=== PATIENT | male | born 1980 | race American Indian/Alaskan Native ===

== ENCOUNTER 2017-10-24 20:04 | Emergency (ER) | payer OTHER ==
[2017-10-24 20:30] VITALS: BP 171/95; PULSE 78; RESP 20; TEMP 98.7; O2SAT 97
--- NOTE | 2017-10-24 21:33 | C.PDOC ---
History Of Present Illness 37 years old male presents to ED with complaints of pain in his right great toe after kicking a solid object at work. Patient c/o of increasing pain on ambulation. Pt denies any weaknesses, numbness or any other physical complaints. Time Seen by Provider: 10/24/17 20:31 Chief Complaint (Nursing): Lower Extremity Problem/Injury History Per: Patient History/Exam Limitations: no limitations Onset/Duration Of Symptoms: Hrs Current Symptoms Are (Timing): Still Present Recent travel outside of the [place]: No - Hip Description Of Injury: Other (kicking a solid object) - Ankle/Foot Description Of Injury: Struck Against Object Past Medical History Reviewed: Historical Data, Nursing Documentation, Vital Signs Vital Signs: Last Vital Signs Temp 98.7 F 10/24/17 20:23 Pulse 78 10/24/17 20:23 Resp 20 10/24/17 20:23 BP 171/95 H 10/24/17 20:23 Pulse Ox 97 10/24/17 21:39 - Medical History PMH: No Chronic Diseases Surgical History: No Surg Hx Family History: States: No Known Family Hx - Social History Hx Alcohol Use: Yes Hx Substance Use: No - Immunization History Hx Tetanus Toxoid Vaccination: No Hx Influenza Vaccination: No Hx Pneumococcal Vaccination: No Review Of Systems Musculoskeletal: Positive for: Other (Right toe pain) Neurological: Negative for: Weakness, Numbness Physical Exam - Physical Exam Appears: Non-toxic, Other (Awake and alert) Skin: Normal Color, Warm, Dry Eye(s): bilateral: Normal Inspection Oral Mucosa: Moist Extremity: No Normal ROM (causes pain to Rt 1st MTP jt), Tenderness (To first MTP ), Capillary Refill (< 2 sec), No Deformity, No Swelling Neurological/Psych: Oriented x3, Normal Speech, Normal Cognition ED Course And Treatment O2 Sat by Pulse Oximetry: 97 (Room Air) Pulse Ox Interpretation: Normal - Other Rad Rt foot X-Ray: Interpreted by Me, Viewed By Me Interpretation: No fx or dislocation Progress Note: Administered Motrin Tab and ordered X-Ray of right foot. X-Ray shows no fractures or dislocation. Pt was palced in an orthopedic shoe for support and advised to follow up with an orthopedic or rn enterostomal. 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 - Scribe Statement The provider has reviewed the documentation as recorded by the Scribsallie Cespedes All medical record entries made by the Rachid were at my direction and personally dictated by me. I have reviewed the chart and agree that the record accurately reflects my personal performance of the history, physical exam, medical decision making, and the department course for this patient. I have also personally directed, reviewed, and agree with the discharge instructions and disposition.
--- NOTE | 2017-10-25 08:43 | RAD ---
PROCEDURE: Radiographs of the right great toe. TECHNIQUE:: AP radiograph of the right foot, with oblique and lateral view of the right great toe. COMPARISON: None. FINDINGS: BONES: First metatarsal-phalangeal joint space narrowing medial and lateral spurring present. A well corticated ossifications lateral aspect and medial/ dorsal aspect -probably old remote osseous avulsions JOINTS: First metatarsal-phalangeal joint hypertrophic arthrosis SOFT TISSUES: Normal. OTHER FINDINGS: None. 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
== END 2017-10-24 22:00 | disposition home or self-care (01) ==
LOC: C.ER 20:04
DX: S93.601A Unspecified sprain of right foot, initial encounter (principal); W22.8XXA Striking against or struck by other objects, initial encounter; Y99.0 Civilian activity done for income or pay